=== PATIENT | female | born 1970 | race Caucasian/White ===

== ENCOUNTER 2018-05-31 09:33 | Emergency (ER) | payer OTHER ==
[~2018-05-31] VITALS: Ht 160 cm; Wt 61.2 kg
[2018-05-31 10:01] LABS: URINE CLARITY CLEAR; URINE COLOR YELLOW; URINE SPECIFIC GRAVITY 1.015 (1.005-1.035)
[2018-05-31 10:02] LABS: URINE BILIRUBIN NEGATIVE (Negative); URINE BLOOD NEGATIVE (Negative); URINE GLUCOSE-RANDOM* NEGATIVE (Negative); URINE KETONES NEGATIVE (Negative); URINE LEUKOCYTES-REFLEX NEGATIVE (Negative); URINE NITRITE-REFLEX NEGATIVE (Negative); URINE PROTEIN (DIPSTICK) NEGATIVE (Negative); URINE UROBILINOGEN 0.2 E.U./dl (0.2-1.0)
[2018-05-31] MEDS ORDERED: NAPROSYN500 MG PO (11:09)
[2018-05-31 11:22] VITALS: BP 104/60
== END 2018-05-31 11:22 | disposition home or self-care (01) ==
LOC: ER 09:33
PROVIDERS: Physician Assistant
DX: R51 Headache (principal); H53.143 Visual discomfort, bilateral; H57.13 Ocular pain, bilateral